=== PATIENT | male | born 1995 | race Caucasian/White ===

== ENCOUNTER 2024-08-23 15:29 | Emergency (ER) | payer BC, SELFPAY ==
[2024-08-23 15:36] VITALS: BP 153/94; PULSE 82; RESP 20; TEMP 36.7; O2SAT 100
[2024-08-23] MEDS: DACRIOSE EYE IRRIGATION 118 ML BOTTLE RIGHT EYE (15:40)
[2024-08-23] MEDS: TETRACAINE HCL 0.5% OPHTH SOLN 4 ML BTL RIGHT EYE (15:40)
--- NOTE | 2024-08-23 15:51 | ED_ITS ---
HPI - Eye Problem General Chief complaint: Eye Problems Stated complaint: right eye Time Seen by Provider: 08/23/24 15:45 Source: patient and RN notes reviewed Mode of arrival: ambulatory Limitations: no limitations History of Present Illness HPI Narrative: 29-year-old male presents Express Care complaining of right eye irritation redness since yesterday. Patient said he was mowing the yd yesterday in believes he may have got something in his eye. Patient denies any apparent injury to his right eye are getting anything in his eye. Patient reports photophobia and a right watery eye. Patient denies any vision changes, blurry vision, eye pain, of pain around the eye, fevers, body aches, or any other symptoms. Patient tried washed his eye out without relief. Patient states it feels like there is something in his eye. Related Data Home Medications ?Medication ?Instructions ?Recorded ?Confirmed ?Last Taken ?Type No Home Medications 08/23/24 08/23/24 Unknown History Allergies Allergy/AdvReac Type Severity Reaction Status Date / Time No Known Allergies Allergy Verified 08/23/24 15:42 Review of Systems Review of Systems: CONSTITUTIONAL: Denies fever, body aches, chills, or sweats. EYES: Denies visual changes. Positive for photophobia, redness, and discharge. ENT: Denies rhinorrhea, congestion, sore throat, or otalgia. CARDIOVASCULAR: Denies chest pain, palpitations, or edema. RESPIRATORY: Denies cough or dyspnea. GASTROINTESTINAL: Denies abdominal pain, nausea, vomiting, or diarrhea. GENITOURINARY: Denies dysuria or hematuria. SKIN: Denies rash or itching. MUSCULOSKELETAL: Denies back pain, joint pain, or myalgia. NEUROLOGIC: Denies headache, numbness, or weakness. PSYCHIATRIC: Denies anxiety or depression. All other systems reviewed are negative, except as documented in HPI. PMFSH Comments At the time of my signature, I reviewed and agree with the nursing past medical, surgical, social, and family history. There is no relevant family history pertinent to the patient complaint. Exam Narrative: GENERAL: This is a well-nourished, well-developed adult, in no apparent distress. They are non ill-appearing, nontoxic appearing. HEAD: normocephalic, atraumatic. EYES: Sclera clear/white. Right Conjunctiva injected. Wire discharge present the right eye. Left conjunctiva normal. Vision is grossly intact. Extraocular movements intact. Pupils PERRLA. Upper and lower eyelid are normal bilaterally. No obvious retained foreign body in the eye. Wood's lamp exam with fluorescent stain to right eye: Small corneal abrasion to right eye your the 6-7 o'clock region. Negative Barbie sign. No vitreous humor, no dendritic lesions. Right Eyelid eversion: No suspicious lesions, stye, or retained foreign body present. EARS: External ears normal, Hearing grossly intact. NOSE: External nose normal THROAT: Mucous membranes moist, NECK: Neck supple, CARDIOVASCULAR: Regular rate and rhythm RESPIRATORY: Respiratory rate normal, respiratory effort nonlabored, no respiratory distress SKIN: warm, Dry, intact with no suspicious lesions or rash, good texture and turgor. NEURO: awake, alert, and oriented to person, place and time. There were no obvious focal neurologic abnormalities. EXTREMITIES: No joint tenderness, effusion, or edema noted. Course Course Emergency Course: Portions of this record may have been created with voice recognition software Level of Care: Express Care Visit Vital Signs Vital signs: Vital Signs Temperature 98.1 F 08/23/24 15:36 Pulse Rate 82 08/23/24 15:36 Respiratory Rate 20 08/23/24 15:36 Blood Pressure 153/94 H 08/23/24 15:36 Pulse Oximetry 100 08/23/24 15:36 Oxygen Delivery Room Air 08/23/24 15:36 Temperature 98.1 F 08/23/24 15:36 Pulse Rate 82 08/23/24 15:36 Respiratory Rate 20 08/23/24 15:36 Blood Pressure 153/94 H 08/23/24 15:36 Pulse Oximetry 100 08/23/24 15:36 Oxygen Delivery Room Air 08/23/24 15:36 Reviewed MDM - Eye Problem MDM Narrative Medical decision making narrative: Patient has corneal abrasion the right eye. Visual acuity intact. Will treat prophylactically treat with or erythromycin ointment. Discussed physical exam findings. Advised supportive measures and signs/symptoms to go to the ER. Pt is appropriate for outpt treatment and f/u. Differential Diagnosis Differential diagnosis: Likely corneal abrasion, conjunctivitis, corneal ulcer and ruptured globe Critical Care Time Critical Care Time Critical Care Time: No Discharge Plan Discharge Clinical Impression: Corneal abrasion Qualifiers: Encounter type: initial encounter Laterality: right Qualified Code(s): S05.01XA - Injury of conjunctiva and corneal abrasion without foreign body, right eye, initial encounter Patient Disposition: Home Condition: Stable Instructions: Antibiotic Form, Corneal Abrasion (ED) Additional Instructions: Corneal abrasions will heal in 1-2 days. Use the antibiotic eye ointment as directed. You can wear sunglasses or stay in low light to avoid light sensitivity. Do not touch or rub your eye. Use over the counter lubricating eye drops as needed for irritation Do not wear contact lenses until issue is resolved You may take Tylenol or ibuprofen for pain Follow-up with PCP or highway engineering teacher if condition is not improving in 2-3days. Please go to the ER for any worsening symptoms, vision changes, severe eye pain, severe eye redness , or any other concerns. [facility] [phone] [facility] [phone] [facility] [phone] [facility] [phone] Patient Language: Tuval[place] Prescriptions: New erythromycin 5 mg/gram (0.5 %) ointment 0.5 inch RIGHT EYE QID 5 Days Qty: 3.5 0RF No Action No Home Medications Follow-up/Referrals: PHYSICIAN,BLOW OFF WORKER [Primary Care Provider] - Time of Disposition: 16:04
[2024-08-23] MEDS: FLUORESCEIN SOD 1 MG/STRIP RIGHT EYE (16:07)
== END 2024-08-23 16:05 | disposition home or self-care (01) ==
DX: S05.01XA Injury of conjunctiva and corneal abrasion without foreign body, right eye, initial encounter (principal); X58.XXXA Exposure to other specified factors, initial encounter; Y93.H2 Activity, gardening and landscaping
CPT/HCPCS: 99213; A9270; G0463